=== PATIENT | female | born 1955 | race Caucasian/White ===

== ENCOUNTER 2023-01-09 05:26 | Day surgery (SDC) | payer OTHER, BC ==
[2023-01-07 11:10] VITALS: BMI 24.0
[~2023-01-09 05:26] MED LIST: LIDOCAINE HCL 1% PRESERVATIVE FREE - 30ML VIAL IJ ONE
[2023-01-09] MEDS ORDERED: ACETAMINOPHEN 500 MG TABLET (FP) PO PRN (07:19)
[2023-01-09] MEDS ORDERED: LIDOCAINE HCL 1% PRESERVATIVE FREE - 30ML VIAL IJ ONE (10:05)
[2023-01-09 10:29] VITALS: BP 124/75; PULSE 75; RESP 20; TEMP 98
== END 2023-01-09 11:31 | disposition home or self-care (01) ==
LOC: JASU-SURG 05:26 → EDBD 11:00 → JASU-SURG 11:31
PROVIDERS: ATTEND Pain Medicine Pain Medicine
PROC: 01HY3MZ Insertion of Neurostimulator Lead into Peripheral Nerve, Percutaneous Approach (ICD-10-PCS; principal; 2023-01-09 09:30)
DX: G89.4 Chronic pain syndrome (principal); M25.512 Pain in left shoulder
CPT/HCPCS: 64555; C1778

== ENCOUNTER 2023-02-03 04:10 | Day surgery (SDC) | payer OTHER, BC ==
[2023-01-29 17:51] VITALS: BMI 24.1
[2023-02-03 06:58] VITALS: RESP 18
[2023-02-03] MEDS ORDERED: LIDOCAINE HCL/PF 1% SDV 5ML VIAL ONE (07:09)
[2023-02-03] MEDS ORDERED: LIDOCAINE 1% P/F 10 MG/ML VIAL INF ONE (09:14)
[2023-02-03 10:25] VITALS: BP 140/80; PULSE 80; TEMP 98.2
[2023-02-03] MEDS ORDERED: ACETAMINOPHEN 500 MG TABLET (FP) PO PRN (12:55)
== END 2023-02-03 10:25 | disposition home or self-care (01) ==
LOC: JASU-SURG 04:10
PROVIDERS: ATTEND Pain Medicine Pain Medicine
PROC: 01HY3MZ Insertion of Neurostimulator Lead into Peripheral Nerve, Percutaneous Approach (ICD-10-PCS; principal; 2023-02-03 08:45)
DX: G89.4 Chronic pain syndrome (principal); M25.512 Pain in left shoulder
CPT/HCPCS: 64555; C1778